=== PATIENT | female | born 1990 | race Caucasian/White ===

== ENCOUNTER 2017-02-08 14:51 | Emergency (ER) | payer MEDICAID ==
[~2017-02-08] VITALS: Ht 170.2 cm; Wt 82.0 kg
[2017-02-08 15:22] VITALS: BP 125/66
== END 2017-02-08 16:57 | disposition home or self-care (01) ==
LOC: EDUNIT# 14:51 → ED 16:51
DX: S63.502A Unspecified sprain of left wrist, initial encounter (principal); G56.02 Carpal tunnel syndrome, left upper limb; X50.1XXA Overexertion from prolonged static or awkward postures, initial encounter; Y93.89 Activity, other specified; Y99.8 Other external cause status; Y92.098 Other place in other non-institutional residence as the place of occurrence of the external cause
CPT/HCPCS: 29125